=== PATIENT | female | born 1965 | race Caucasian/White ===

== ENCOUNTER 2020-09-06 12:16 | Outpatient (CLI) | payer BC | END 2020-09-06 12:17 | disposition home or self-care (01) | LOC: CSHRAD 12:16 | PROVIDERS: ATTEND Family Medicine | DX: M54.5 Low back pain (principal); S22.080A Wedge compression fracture of T11-T12 vertebra, initial encounter for closed fracture | CPT/HCPCS: 72072; 72100; 72220 ==

== ENCOUNTER 2021-10-18 11:43 | Outpatient (CLI) | payer BC ==
[2021-10-18 12:37] LABS: Hemoglobin 15.2 g/dL (12.0-15.5); Mean Corpuscular HGB CONC 32.4 g/dL (32.0-36.0); Mean Corpuscular Hemoglobin 29.4 pg (27.0-33.0); Mean Corpuscular Volume 90.7 fl (81.6-98.3); Mean Platelet Volume 10.6 fl (7.4-10.4); Platelet Count 304 10x3/uL (150-450); RBC Distribution Width 12.2 % (11.5-14.5); Red Blood Cell (RBC) Count 5.17 10x6/uL (3.90-5.03); White Blood Cell (WBC) Count 5.9 10x3/uL (3.5-10.5)
[2021-10-18 12:52] LABS: Anion Gap 14 mmol/L (10-20); BUN (Urea Nitrogen) 13 mg/dL (9.8-20.1); Calc. Creatinine Clearance 0 mL/min (70-130); Calcium 9.9 mg/dL (7.8-10.44); Carbon Dioxide 27 mmol/L (22-29); Chloride 105 mmol/L (98-107); Glucose 77 mg/dL (70-105); Potassium 4.2 mmol/L (3.5-5.1); Sodium 142 mmol/L (136-145)
== END 2021-10-18 11:44 | disposition home or self-care (01) ==
LOC: CSHLAB 11:43
PROVIDERS: ATTEND Student in an Organized Health Care Education/Training Program
DX: Z01.818 Encounter for other preprocedural examination (principal); Z20.822 Contact with and (suspected) exposure to COVID-19
CPT/HCPCS: 80048; 85027; 93005; 93010; U0003; U0005

== ENCOUNTER 2021-10-19 07:36 | Day surgery (SDC) | payer BC ==
[2021-10-18 13:51] VITALS: BMI 25.6
[~2021-10-19 07:36] MED LIST: Bupivacaine PF 0.5% 30 ML VIAL ONE; EPINEPHrine 1 MG/ML AMP ONE
[2021-10-19] MEDS ORDERED: Lidocaine 1% MPF 2 ML VIAL ONE (07:47)
[2021-10-19] MEDS ORDERED: CeleCOXIB 100 MG CAP ONE (07:47)
[2021-10-19] MEDS ORDERED: Rocuronium Bromide 10 MG/ML (10ML VIAL) ONE (08:13)
[2021-10-19] MEDS ORDERED: Ondansetron PF 4 MG/2 ML Vial ONE (08:13)
[2021-10-19] MEDS ORDERED: Fentanyl 100 MCG/2 ML VIAL ONE (08:13)
[2021-10-19] MEDS ORDERED: PHENYLEPHRINE-NS 100 MCG/ML 10 ML SYRINGE ONE (08:13)
[2021-10-19] MEDS ORDERED: Lidocaine 1% PF 5 ML VIAL ONE (08:13)
[2021-10-19] MEDS ORDERED: PROPOFOL 20 ML ONE (08:13)
[2021-10-19] MEDS ORDERED: Ketorolac Tromethamine 30 MG/ML VIAL ONE (08:13)
[2021-10-19] MEDS ORDERED: Dexamethasone 4 mg/ml Vial ONE ×2 (08:13→09:45)
[2021-10-19] MEDS ORDERED: SUGAMMADEX SODIUM 200 MG/2 ML VIAL ONE (08:18)
[2021-10-19] MEDS ORDERED: ceFAZolin 2 GM/Dextrose 50 ML IVPB ONE (09:19)
[2021-10-19] MEDS ORDERED: Glycopyrrolate 0.2 MG/ML 5 ML SYRINGE ONE (09:49)
== END 2021-10-19 13:40 | disposition home or self-care (01) ==
LOC: CSHSDC 07:36
PROVIDERS: ATTEND Student in an Organized Health Care Education/Training Program
PROC: 0UT14ZZ Resection of Left Ovary, Percutaneous Endoscopic Approach (ICD-10-PCS; principal; 2021-10-19)
PROC: 0UT64ZZ Resection of Left Fallopian Tube, Percutaneous Endoscopic Approach (ICD-10-PCS; principal; 2021-10-19)
DX: D27.1 Benign neoplasm of left ovary (principal); Z88.8 Allergy status to other drugs, medicaments and biological substances; Z91.040 Latex allergy status; Z95.2 Presence of prosthetic heart valve; Z98.51 Tubal ligation status
CPT/HCPCS: 88305; J0171; J0690; J1100; J1885; J2405; J2704; J3010; S0020